=== PATIENT | male | born 1955 | race Caucasian/White ===

== ENCOUNTER → 2017-03-27 | Outpatient (CLI) | payer BC ==
[~2017-03-27] MED LIST: IBUP-1050 PO
--- NOTE | 2017-03-27 11:58 | DIAGNOSTIC IMAGING REPORT ---
KUB HISTORY: Follow-up study in a patient with history of nephrolithiasis N20.0 [id number] COMPARISON: KUB 02/14/2015 FINDINGS: The bowel gas pattern is non-obstructive. There is no organomegaly. There appears to be progressive bilateral nephrolithiasis with largest calculus on the left measuring up to 7 mm. Largest calculi on the right measure up to 4 mm. No definite ureteral calculi identified. Calcifications of the pelvis suggest phleboliths. There are surgical clips projecting over the right pelvis. A vague material is noted projecting over the right hemicolon. Vascular calcifications noted. No pneumoperitoneum or pneumatosis. No fracture. Degenerative changes of the spine and pelvis. IMPRESSION: 1. Bilateral nephrolithiasis appears to have progressed from comparison study 02/14/2015. 2. No definite ureteral calculi identified. Electronically signed by: Jeff Parks M.D. 03/27/2017 11:57 AM Dictated Date/Time: 03/27/2017 11:55 AM
== END | disposition home or self-care (01) ==
LOC: C.LAB 10:57
PROVIDERS: ATTEND Urology
DX: N20.0 Calculus of kidney (principal)

== ENCOUNTER → 2017-09-24 | Outpatient (CLI) | payer BC ==
[~2017-09-24] MED LIST changes: +ALL100 PO; +ALLO300T2 PO; +CETI10TA10 PO; +DICL-201 PO; +FLUT0.15 NAE; +GARL1CAP6 PO; -IBUP-1050 PO; +MORP15TA PO; +MULT-1093 PO; +ONDA4TAB10 SL; +PNC/500 PO; +TAMS0.4C38 PO; +VLT75 PO
--- NOTE | 2017-09-24 07:53 | DIAGNOSTIC IMAGING REPORT ---
KUB CLINICAL HISTORY: NEPHROLITHIASIS COMPARISON STUDY: 03/27/2017 FINDINGS: There are multiple bilateral renal calculi, numbering in excess of 5 each kidney. Largest on the right measures 4 mm. The largest in the left measures 7 mm. Multiple pelvic basin calcifications remain stable and likely represent phleboliths. There is no pathologic bowel dilatation. Degenerative changes are present within the spine. IMPRESSION: Persistent bilateral nephrolithiasis. Electronically signed by: Jaret Espitia M.D. 09/24/2017 7:51 AM Dictated Date/Time: 09/24/2017 7:50 AM
== END | disposition home or self-care (01) ==
LOC: C.RAD 07:35
PROVIDERS: ATTEND Urology
DX: N20.0 Calculus of kidney (principal)

== ENCOUNTER → 2017-09-30 | Outpatient (CLI) | payer BC ==
[~2017-09-30] MED LIST changes: -TAMS0.4C38 PO
--- NOTE | 2017-09-30 13:43 | DIAGNOSTIC IMAGING REPORT ---
CHEST 2 VIEWS ROUTINE CLINICAL HISTORY: N20.0 [id number] COMPARISON STUDY: No previous studies for comparison. FINDINGS: The cardiac and mediastinal contours are normal. There is no evidence of focal pulmonary consolidation. There is no evidence of failure. No pleural effusions are visualized.[ There are minor left basilar atelectatic changes IMPRESSION: No active disease in the chest. Electronically signed by: Jaret Espitia M.D. 09/30/2017 1:42 PM Dictated Date/Time: 09/30/2017 1:41 PM
== END | disposition home or self-care (01) ==
LOC: C.CPL 13:08
PROVIDERS: ATTEND Urology
DX: N20.0 Calculus of kidney (principal)

== ENCOUNTER → 2017-10-04 | Outpatient (CLI) | payer BC ==
[~2017-10-04] MED LIST changes: -ALL100 PO; -MORP15TA PO; -MULT-1093 PO; -ONDA4TAB10 SL; -PNC/500 PO; -VLT75 PO
--- NOTE | 2017-10-04 07:40 | DIAGNOSTIC IMAGING REPORT ---
KUB HISTORY: N20.0 Nephrolithiasis COMPARISON: None. FINDINGS: The bowel gas pattern is unremarkable. There are no dilated loops of small bowel to suggest an obstruction. There again noted multiple bilateral renal calculi with the largest on the right measuring 4 mm and the largest on the left measuring 7 mm. These are not significantly changed. Stable calcifications within the deep pelvis consistent with phleboliths. No definite ureteral calculi. Suture material within the right lower quadrant. Stable bilateral nephrolithiasis. No pneumoperitoneum or pneumatosis. IMPRESSION: Stable bilateral nephrolithiasis. No ureteral calculi. Electronically signed by: Melvin Fletcher M.D. 10/04/2017 7:39 AM Dictated Date/Time: 10/04/2017 7:37 AM
== END | disposition home or self-care (01) ==
LOC: C.RAD 07:15
PROVIDERS: ATTEND Urology
DX: N20.0 Calculus of kidney (principal)

== ENCOUNTER → 2017-10-04 | Day surgery (SDC) | payer BC ==
[2017-10-01 12:04] VITALS: Ht 185.4 cm; Wt 115.9 kg
[~2017-10-04] VITALS: Ht 185.4 cm; Wt 115.9 kg
[~2017-10-04] MED LIST changes: +ALL100 PO; +ATROPINE SULFATE 0.1 MG/ML 5ML SYR IV PRN; +CIPROFLOXACIN 400MG / D5W IV SCH; +DEXAMETHASONE SOD INJ 4 MG/ML VIAL ONE; +EpHEDrine SULFATE INJ 50 MG/ML AMP IV PRN; +FENTANYL CITRATE INJ 50 MCG/1 ML 2 ML VIAL IV PRN; +FENTANYL CITRATE INJ 50 MCG/1 ML 2 ML VIAL ONE; +FLUMAZENIL 0.1 MG/1 ML 10 ML VIAL IV PRN; +LABETALOL HCL IV 5 MG/ML 20ML IV PRN; +LACTATED RINGER'S 1000ML 1,000 ML IV SCH; +LIDOCAINE HCL 2% 2 ML VIAL (20MG/ML) ONE; +MIDAZOLAM HCL 1 MG/ML 2ML VIAL ONE; +MORP15TA PO; +MULT-1093 PO; +NALOXONE HCL 0.4 MG/1 ML VIAL/CARP IV PRN; +ONDA4TAB10 SL; +ONDANSETRON INJ 2 MG/ML 2 ML VIAL IV PRN; +ONDANSETRON INJ 2 MG/ML 2 ML VIAL ONE; +PNC/500 PO; +PROMETHAZINE HCL INJ 12.5 MG in SODIUM CHLORIDE 0.9% 50ML 50 ML IV PRN; +PROPOFOL IV EMULSION 10 MG/ML 20 ML VIAL ONE; +VLT75 PO
--- NOTE | 2017-10-04 11:38 | History & Physical Bridge - SC ---
H&P Re-Evaluation Bridge Note: I have examined the patient, reviewed the History & Physical and in the interval since the performance of the History & Physical I have noted the following changes of clinical significance: No changes noted
--- NOTE | 2017-10-04 12:31 | Discharge Instructions-SurgCtr ---
Discharge Instructions Date of Service Oct 04, 2017. Visit Reason for Visit: Nephrolithiasis Discharge Discharge Diagnosis / Problem: post op left eswl Discharge Goals Goal(s): Decrease discomfort, Improve disease control Medications Stopped Medications Name(s): Voltaren Last dose approximately 7 days ago Activity Recommendations Activity Limitations: resume your previous activity Exercise/Sports Limitations: rest today Anesthesia . Post Anesthesia Instructions: If you have had General Anesthesia or IV Sedation: * Do not drive today. * Resume driving when surgeon permits. * Do not make important decisions or sign legal documents today. * Call surgeon for: 1. Temperature elevations greater than 101 degrees F. 2. Uncontrollable pain. 3. Excessive bleeding. 4. Persistent nausea and vomiting. 5. Medication intolerance (nausea, vomiting or rash). * For nausea and vomiting use only clear liquids such as: tea, soda, bouillon until nausea subsides, then gradually increase diet as tolerated. * If you have any concerns or questions, call your surgeon's office. If physician is unavailable and it is an emergency, call 911 or go to the nearest emergency room. . Diet Recommendations Home Diet: resume previous diet Procedures Procedures Performed: Left Renal Extracorporeal Shock Wave Lithotripsy Pending Studies Studies pending at discharge: no Medical Emergencies . Who to Call and When: Medical Emergencies: If at any time you feel your situation is an emergency, please call 911 immediately. . Non-Emergent Contact Non-Emergency issues call your: Urologist Call Non-Emergent contact if: temperature is above 101, your pain is not controlled . . "Provider Documentation" section prepared by Tahir Novak. .
--- NOTE | 2017-10-04 12:32 | [facility] Post Operative Brief Note ---
Immediate Operative Summary Operative Date Oct 04, 2017. Pre-Operative Diagnosis Left Renal Stone Post-Operative Diagnosis Same Procedure(s) Performed Left Renal Extracorporeal Shock Wave Lithotripsy Surgeon Dr. Novak Sign Shop Supervisor Surgeon(s) None Estimated Blood Loss 0 mL Findings Consistent with Post-Op Diagnosis Specimens None Anesthesia Type General
--- NOTE | 2017-10-04 13:02 | Anesthesia Progress Nt - [facility] ---
Anesthesia Post Op Note Date & Time Oct 04, 2017 at 13:02 Vital Signs Pain Intensity: 0 Vital Signs Past 12 Hours Date Time Temp Pulse Resp B/P (MAP) Pulse Ox O2 Delivery O2 Flow Rate FiO2 10/04/17 12:44 68 27 10/04/17 12:44 68 27 99 10/04/17 12:41 133/89 10/04/17 12:39 68 19 10/04/17 12:39 68 19 100 10/04/17 12:36 138/92 10/04/17 12:36 132/89 10/04/17 12:34 36.9 66 14 132/89 99 Mask 9 10/04/17 09:23 36.9 84 16 141/95 (110) 97 Room Air Notes Mental Status: alert / awake / arousable, participated in evaluation Pt Amnestic to Procedure: Yes Nausea / Vomiting: adequately controlled Pain: adequately controlled Airway Patency, RR, SpO2: stable & adequate BP & HR: stable & adequate Hydration State: stable & adequate Anesthetic Complications: no major complications apparent
[2017-10-04 13:51] VITALS: BP 143/92; PULSE 68; TEMP 36.5; O2SAT 97
--- NOTE | 2017-10-07 17:42 | OPERATIVE REPORT ---
DATE OF OPERATION: 10/04/2017 PREOPERATIVE DIAGNOSIS: Left renal stones. POSTOPERATIVE DIAGNOSIS: Same. SURGEON: Tahir Novak MD. ANESTHESIA: General. INDICATIONS: The patient is a 62-year-old male with a history of left renal stones, here for lithotripsy. The largest of the stones was 6 x 4 mm, and this is the one that was targeted. DESCRIPTION OF THE PROCEDURE: The patient was given general anesthesia after he was taken to the OR and placed supine on the lithotripsy table. He had Venodyne stockings placed and was given preoperative antibiotics. The stone was visualized in 2 views, and he received 2500 shocks, the majority at level 5. At the end of the procedure, the patient was transferred to the recovery room in stable condition. I attest to the content of the Intraoperative Record and any orders documented therein. Any exception s are noted below.
== END | disposition home or self-care (01) ==
LOC: X.SURG 07:44
PROVIDERS: ATTEND Urology
DX: N20.0 Calculus of kidney (principal); K21.9 Gastro-esophageal reflux disease without esophagitis; M10.9 Gout, unspecified; E66.9 Obesity, unspecified; Z68.33 Body mass index [BMI] 33.0-33.9, adult

== ENCOUNTER → 2017-10-15 | Outpatient (CLI) | payer BC ==
[~2017-10-15] MED LIST changes: -ALL100 PO; -ATROPINE SULFATE 0.1 MG/ML 5ML SYR IV PRN; -CIPROFLOXACIN 400MG / D5W IV SCH; -DEXAMETHASONE SOD INJ 4 MG/ML VIAL ONE; -EpHEDrine SULFATE INJ 50 MG/ML AMP IV PRN; -FENTANYL CITRATE INJ 50 MCG/1 ML 2 ML VIAL IV PRN; -FENTANYL CITRATE INJ 50 MCG/1 ML 2 ML VIAL ONE; -FLUMAZENIL 0.1 MG/1 ML 10 ML VIAL IV PRN; -LABETALOL HCL IV 5 MG/ML 20ML IV PRN; -LACTATED RINGER'S 1000ML 1,000 ML IV SCH; -LIDOCAINE HCL 2% 2 ML VIAL (20MG/ML) ONE; -MIDAZOLAM HCL 1 MG/ML 2ML VIAL ONE; -MORP15TA PO; -MULT-1093 PO; -NALOXONE HCL 0.4 MG/1 ML VIAL/CARP IV PRN; -ONDA4TAB10 SL; -ONDANSETRON INJ 2 MG/ML 2 ML VIAL IV PRN; -ONDANSETRON INJ 2 MG/ML 2 ML VIAL ONE; -PNC/500 PO; -PROMETHAZINE HCL INJ 12.5 MG in SODIUM CHLORIDE 0.9% 50ML 50 ML IV PRN; -PROPOFOL IV EMULSION 10 MG/ML 20 ML VIAL ONE; -VLT75 PO
== END | disposition home or self-care (01) ==
LOC: C.LABSPEC 10:22
PROVIDERS: ATTEND Urology
DX: N20.0 Calculus of kidney (principal)

== ENCOUNTER → 2017-10-15 | Outpatient (CLI) | payer BC ==
--- NOTE | 2017-10-15 08:16 | DIAGNOSTIC IMAGING REPORT ---
KUB CLINICAL HISTORY: 62 years-old Male presenting with N20.0 Nephrolithiasis, history of recent left-sided lithotripsy. TECHNIQUE: Single supine view of the abdomen was obtained. COMPARISON: 10/04/[address] from 09/16/2017. FINDINGS: Postsurgical changes in the right lower quadrant may suggest hernia repair. Moderate stool burden in the right colon. Nonobstructive bowel gas pattern. No gross pneumoperitoneum. Redemonstration of bilateral nephrolithiasis. These are primarily in the interpolar to lower pole regions. No radiographic evidence of ureteral calculi. Stable distribution of pelvic phleboliths. Degenerative changes of the spine. IMPRESSION: 1. Bilateral nephrolithiasis unchanged since the most recent prior radiograph. No radiographic evidence of ureteral calculi. Electronically signed by: Hamzah Lo M.D. 10/15/2017 8:14 AM Dictated Date/Time: 10/15/2017 8:12 AM
== END | disposition home or self-care (01) ==
LOC: C.RAD 07:48
PROVIDERS: ATTEND Urology
DX: N20.0 Calculus of kidney (principal)